=== PATIENT | female | born 1975 | race African-American/Black ===

== ENCOUNTER 2023-08-22 10:55 | Emergency (ER) | payer OTHER ==
[2023-08-22] MEDS ORDERED: Cyclobenzaprine 10 MG TAB ONE (12:32)
[2023-08-22] MEDS ORDERED: Ketorolac Tromethamine 30 MG (1 mL) VIAL ONE (12:32)
== END 2023-08-22 13:48 | disposition home or self-care (01) ==
LOC: ERS 10:55
DX: S16.1XXA Strain of muscle, fascia and tendon at neck level, initial encounter (principal); V89.0XXA Person injured in unspecified motor-vehicle accident, nontraffic, initial encounter
CPT/HCPCS: 72072; 72125; 96372; J1885